=== PATIENT | male | born 1955 | race Asian ===

== ENCOUNTER 2018-03-18 01:07 | Emergency (ER) | payer MEDICARE, OTHER ==
[2018-03-18 01:40] LABS: BASOPHILS # (AUTO) 0.1 10^3/uL (0.0-0.1); BASOPHILS % (AUTO) 1.3 %; EOSINOPHILS # (AUTO) 0.1 10^3/uL (0.0-0.7); EOSINOPHILS % (AUTO) 1.9 %; HGB - HEMOGLOBIN 14.2 g/dL (14.0-18.0); LYMPHOCYTES # (AUTO) 1.7 10^3/uL (1.5-3.5); LYMPHOCYTES % (AUTO) 30.3 %; MEAN CORPUSCULAR HEMOGLOBIN 33.6 pg (27.0-31.0); MEAN CORPUSCULAR HGB CONC 34.6 g/dL (32.0-36.0); MEAN CORPUSCULAR VOLUME 97.2 fL (80.0-94.0); MEAN PLATELET VOLUME 8.8 fL (7.4-11.4); MONOCYTES # (AUTO) 0.4 10^3/uL (0.0-1.0); NEUTROPHILS # (AUTO) 3.2 10^3/uL (1.5-6.6); NEUTROPHILS % (AUTO) 58.5 %; PLT - PLATELET COUNT 178 10^3/uL (130-450); RED BLOOD COUNT 4.23 10^6/uL (4.70-6.10); RED CELL DISTRIBUTION WIDTH 13.6 % (12.0-15.0); WHITE BLOOD COUNT 5.5 x10^3/uL (4.8-10.8)
[2018-03-18 01:53] LABS: ALBUMIN 4.3 g/dL (3.2-5.5); ALBUMIN/GLOBULIN RATIO 1.2 (1.0-2.2); BILIRUBIN,TOTAL 0.8 mg/dL (0.2-1.0); CREATININE 1.4 mg/dL (0.6-1.2); TOTAL PROTEIN 7.8 g/dL (6.7-8.2)
--- NOTE | 2018-03-18 01:58 | ED Physician Documentation ---
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 He checked his blood pressure and readings of 200's/100's on several success readings. He was due for his evening dose of labetalol and took the dose. The blood pressures remained in the same range and thus he took a dose of losartan and spirinolactone (both of which he usually only takes in the AM). He continued to have readings in the 200-210/100-110 range, and thus comes to ED for evaluation. He notes that he ran out of his Norvasc (10mg PO QD) approximately 1 month ago, although his blood pressures weren't high until tonight (he says he checks his BP daily). He had mild blurry vision when his blood pressures were high earlier this evening, but this resolved. 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 denies: Loss of vision, Photophobia Cardiac: reports: Reviewed and negative Respiratory: reports: Reviewed and negative GI: reports: Reviewed and negative Neurologic: reports: Headache (resolved). denies: Generalized weakness, Focal weakness, Numbness, Difficulty speaking, Near syncope, Syncope, Altered mental status PD PAST MEDICAL HISTORY - Past Medical History Past Medical History: Yes Cardiovascular: Hypertension, High cholesterol, Coronary artery disease Respiratory: None Neuro: None Endocrine/Autoimmune: Type 2 diabetes GI: GERD : None HEENT: None Psych: None Musculoskeletal: Osteoarthritis, Gout Derm: None - Past Surgical History Past Surgical History: Yes Cardiovascular: CABG, Angioplasty - Present Medications Home Medications: Ambulatory Orders Medication Instructions Recorded Confirmed Allopurinol 300 mg PO DAILY 03/18/18 03/18/18 Amlodipine Besylate [Norvasc] 10 mg PO DAILY 03/18/18 03/18/18 Amlodipine Besylate [Norvasc] 10 mg PO DAILY #30 tablet 03/18/18 Labetalol [Trandate] 300 mg PO BID 03/18/18 03/18/18 Losartan Potassium 100 mg PO DAILY 03/18/18 03/18/18 Sitagliptin Phos/Metformin HCl 1 tab PO BID 03/18/18 03/18/18 [Janumet 50-1,000 mg Tablet] Spironolactone 25 mg PO DAILY 03/18/18 03/18/18 - Allergies Allergies/Adverse Reactions: Allergies Allergy/AdvReac Type Severity Reaction Status Date / Time No Known Drug Allergies Allergy Verified 03/18/18 01:14 - Social History Does the pt smoke?: No Smoking Status: Former smoker Does the pt drink ETOH?: Yes ETOH Use: Beer, Liquor Does the pt have substance abuse?: No - Immunizations Immunizations are current?: No Immunizations: TDAP >10years/unknown - POLST Patient has POLST: No PD ED PE NORMAL - Vitals Vital signs reviewed: Yes - General General: Alert and oriented X 3, No acute distress, Well developed/nourished - HEENT HEENT: PERRL, EOMI, Moist mucous membranes - Cardiac Cardiac: RRR, No murmur - Respiratory Respiratory: No respiratory distress, Clear bilaterally - Abdomen Abdomen: Soft, Non tender - Neuro Neuro: Alert and oriented X 3, metal expediter 2-12 intact, No motor deficit, No sensory deficit, Normal speech Eye Opening: Spontaneous Motor: Obeys Commands Verbal: Oriented GCS Score: 15 Results - Vitals Vitals: Vital Signs - 24 hr 03/18/18 03/18/18 03/18/18 01:10 02:12 03:06 Temperature 36.3 C L Heart Rate 64 64 54 L Respiratory 16 21 18 Rate Blood Pressure 233/103 H 199/88 H 187/84 H O2 Saturation 99 98 95 03/18/18 03:36 Temperature Heart Rate 54 L Respiratory 19 Rate Blood Pressure 191/92 H O2 Saturation 94 Oxygen O2 Source Room air - EKG (time done) No standard instances Rate: Rate (enter#) (64) Rhythm: NSR, LAE [place]: LAD, Anterior hemiblock Intervals: Normal TN, RBBB QRS: Normal Ischemia: Normal ST segments - Labs Labs: Laboratory Tests 03/18/18 03/18/18 01:25 01:25 WBC 5.5 RBC 4.23 L Hgb 14.2 Hct 41.1 L MCV 97.2 H MCH 33.6 H MCHC 34.6 RDW 13.6 Plt Count 178 MPV 8.8 Neut # (Auto) 3.2 Lymph # (Auto) 1.7 [place] # (Auto) 0.4 Eos # (Auto) 0.1 Baso # (Auto) 0.1 Absolute Nucleated RBC 0.01 Nucleated RBC % 0.1 Sodium 134 L Potassium 3.7 Chloride 105 Carbon Dioxide 22 Anion Gap 7.0 BUN 26 H Creatinine 1.4 H Estimated GFR (MDRD) 51 L Glucose 124 H Calcium 9.0 Total Bilirubin 0.8 AST 28 ALT 30 Alkaline Phosphatase 58 Total Protein 7.8 Albumin 4.3 Globulin 3.5 Albumin/Globulin Ratio 1.2 Lipase 54 H PD MEDICAL DECISION MAKING - ED course Complexity details: reviewed results, re-evaluated patient, considered differential, d/w patient ED course: SBP improved during ED stay to 180s SBP with DBP 80s. His heart rate was mid-50s when asleep. He remained asymptomatic during ED stay. Rx provided for his Norvasc, but no meds given in ED due to improving blood pressures and mid-50s heart rate. Departure - Departure Disposition: 01 Home, Self Care Clinical Impression: Hypertension, Renal insufficiency Condition: Good Instructions: ED Hypertension Conf Out Of Control, ED Insufficiency Renal Follow-Up: RENITA MARTINEZ MD [Primary Care Provider] - (Call in the morning to arrange for next available appointment) Prescriptions: Amlodipine Besylate [Norvasc] 10 mg PO DAILY #30 tablet Discharge Date/Time: 03/18/18 03:46
--- NOTE | 2018-03-18 02:52 | XRAY Report ---
Reason: high blood pressure, chest discomfort Procedure Date: 03/18/2018 Accession Number: [id number] / [id number] Procedure: XR - Chest 2 View X-Ray CPT Code: 09869 FULL RESULT: EXAM: CHEST RADIOGRAPHY EXAM DATE: 03/18/2018 02:45 AM. CLINICAL HISTORY: High blood pressure, chest discomfort. COMPARISON: None. TECHNIQUE: 2 views. FINDINGS: Lungs/Pleura: No alveolar consolidation or pleural effusion seen. No pneumothorax. Mediastinum: Heart size upper normal. Tortuous atherosclerotic aorta. Other: Median sternotomy. IMPRESSION: 1. Borderline heart size and postoperative changes. 2. No acute abnormality seen. RADIA
[2018-03-18 03:37] VITALS: BP 191/92
== END 2018-03-18 03:46 | disposition home or self-care (01) ==
LOC: ED 01:07
DX: I11.9 Hypertensive heart disease without heart failure (principal); N28.9 Disorder of kidney and ureter, unspecified; E11.9 Type 2 diabetes mellitus without complications; T46.1X6A Underdosing of calcium-channel blockers, initial encounter; I45.10 Unspecified right bundle-branch block; Z87.891 Personal history of nicotine dependence; Z79.84 Long term (current) use of oral hypoglycemic drugs
CPT/HCPCS: 36415; 71046; 80053; 83690; 85025; 93005; 99283; 99284

== ENCOUNTER 2020-03-07 12:10 | Emergency (ER) | payer MEDICARE, OTHER ==
--- NOTE | 2020-03-07 12:45 | ED Physician Documentation ---
History of Present Illness - Stated complaint Stated Complaint: MEDICATION REFILL - Chief complaint Chief Complaint: General - History obtained from History obtained from: Patient, Family - History of Present Illness Timing: How many days ago (2) - Additonal information Additional information: 64-year-old male was treated for hypertension as left his home in [place] without his medications. He has been 2 days without his medicines and last night he began to feel some pain in the back of his neck and he decided he should get his medications refilled before returning home. He is returning home in 2 days time. He is asking for medications for hypertension. Review of Systems Constitutional: denies: Fever Ears: denies: Ear pain Nose: denies: Congestion Throat: denies: Sore throat Respiratory: denies: Cough GI: denies: Nausea, Vomiting : denies: Dysuria PD PAST MEDICAL HISTORY - Past Medical History Cardiovascular: Hypertension, High cholesterol, Coronary artery disease Respiratory: None Neuro: None Endocrine/Autoimmune: Type 2 diabetes GI: GERD : None HEENT: None Psych: None Musculoskeletal: Osteoarthritis, Gout Derm: None - Past Surgical History Past Surgical History: Yes Cardiovascular: CABG, Angioplasty - Present Medications Home Medications: Ambulatory Orders Medication Instructions Recorded Confirmed Amlodipine Besylate [Norvasc] 10 mg PO DAILY #30 tablet 03/18/18 03/07/20 Labetalol [Trandate] 100 mg PO BID 03/18/18 03/07/20 Losartan Potassium 100 mg PO DAILY 03/18/18 03/07/20 Sitagliptin Phos/Metformin HCl 1 tab PO BID 03/18/18 03/07/20 [Janumet 50-1,000 mg Tablet] Spironolactone 50 mg PO DAILY 03/18/18 03/07/20 allopurinoL [Allopurinol] 300 mg PO DAILY 03/18/18 03/07/20 Amlodipine Besylate [Norvasc] 10 mg PO DAILY #5 tablet 03/07/20 Atorvastatin Calcium [Lipitor] 80 mg PO DAILY PM 03/07/20 03/07/20 Empagliflozin [Jardiance] 20 mg PO DAILY 03/07/20 03/07/20 Labetalol [Trandate] 100 mg PO BID #10 tablet 03/07/20 Losartan [Cozaar] 100 mg PO DAILY #5 tablet 03/07/20 Spironolactone 50 mg PO DAILY #5 tablet 03/07/20 - Allergies Allergies/Adverse Reactions: Allergies Allergy/AdvReac Type Severity Reaction Status Date / Time No Known Drug Allergies Allergy Verified 03/07/20 12:25 - Social History Does the pt smoke?: No Smoking Status: Former smoker Does the pt drink ETOH?: Yes Does the pt have substance abuse?: No - Immunizations Immunizations are current?: No Immunizations: TDAP >10years/unknown - POLST Patient has POLST: No PD ED PE NORMAL - Vitals Vital signs reviewed: Yes (hypertension ) - General General: Alert and oriented X 3, No acute distress, Well developed/nourished - HEENT HEENT: Atraumatic, PERRL, EOMI - Neck Neck: Supple, no meningeal sign - Cardiac Cardiac: RRR, No murmur - Respiratory Respiratory: No respiratory distress, Clear bilaterally - Derm Derm: Normal color, Warm and dry, No rash - Extremities Extremities: No deformity, No edema - Neuro Neuro: Alert and oriented X 3, paraprofessional aide 2-12 intact, No motor deficit, No sensory deficit, Normal speech Eye Opening: Spontaneous Motor: Obeys Commands Verbal: Oriented GCS Score: 15 - Psych Psych: Normal mood, Normal affect Results - Vitals Vitals: Vital Signs - 24 hr 03/07/20 03/07/20 12:25 13:11 Temperature 37 C Heart Rate 65 62 Respiratory 18 16 Rate Blood Pressure 191/77 H 152/69 H O2 Saturation 99 99 Oxygen O2 Source Room air PD MEDICAL DECISION MAKING - ED course Complexity details: considered differential, d/w patient, d/w family ED course: 64 y/o otherwise well male with hypertension and symptoms of posterior neck pain requires his blood pressure medications and this is filled for 5 day supply. Departure - Departure Disposition: 01 Home, Self Care Clinical Impression: Hypertension Qualifiers: Hypertension type: unspecified Qualified Code(s): I10 - Essential (primary) hypertension Condition: Stable Instructions: ED HTN Established Follow-Up: Your, doctor [Other] Prescriptions: Losartan [Cozaar] 100 mg PO DAILY #5 tablet Amlodipine Besylate [Norvasc] 10 mg PO DAILY #5 tablet Spironolactone 50 mg PO DAILY #5 tablet Labetalol [Trandate] 100 mg PO BID #10 tablet Discharge Date/Time: 03/07/20 13:17
[2020-03-07 13:12] VITALS: BP 152/69
== END 2020-03-07 13:17 | disposition home or self-care (01) ==
LOC: ED 12:10
DX: I10 Essential (primary) hypertension (principal); T46.5X6A Underdosing of other antihypertensive drugs, initial encounter; Z91.138 Patient's unintentional underdosing of medication regimen for other reason; E11.9 Type 2 diabetes mellitus without complications; Z79.84 Long term (current) use of oral hypoglycemic drugs; Z87.891 Personal history of nicotine dependence; Z95.1 Presence of aortocoronary bypass graft
CPT/HCPCS: 99283; 99284